=== PATIENT | female | born 1955 | race Hispanic/Latino ===

== ENCOUNTER 2024-12-01 23:33 | Emergency (ER) | payer MEDICARE, BC ==
[2024-12-01] MEDS ORDERED: Acetaminophen 500 MG TAB ONE (23:47)
[2024-12-01] MEDS ORDERED: Ondansetron PF 4 MG/2 ML Vial ONE (23:47)
[2024-12-01] MEDS ORDERED: Sodium Chloride 0.9% 1,000 ML ONE (23:47)
[2024-12-02] MEDS ORDERED: Thiamine HCl 200 MG/2 ML VIAL ONE (00:07)
[2024-12-02] MEDS ORDERED: Acetaminophen 650 MG Suppository ONE (00:07)
[2024-12-02] MEDS ORDERED: Acetaminophen 325 MG Suppository ONE (00:07)
[2024-12-02 00:12] LABS: Band 3 % (5-11); Lymphocytes 11 % (21-51); MDiff Complete? YES; Mean Corpuscular HGB CONC 33.5 g/dL (32.0-36.0); Mean Corpuscular Hemoglobin 30.9 pg (27.0-31.0); Mean Corpuscular Volume 92.5 fl (78.0-98.0); Monocytes 2 % (0-10); Neutrophil 84 % (42-75); Platelet Count 334 10x3/uL (130-400); RBC Distribution Width 11.8 % (11.5-14.5); Red Blood Cell (RBC) Count 4.21 mill/uL (4.20-5.40); White Blood Cell (WBC) Count 18.7 10x3/uL (4.8-10.8)
[2024-12-02 00:20] LABS: Acetaminophen Less than 10 mcg/mL (Less than 10); Alcohol Less than 10.0 mg/dL (Less than 10); Lipase 51 U/L (8-78); Magnesium 2.1 mg/dL (1.6-2.6); Salicylate Less than 8.0 mg/dL (Less than 8.0); Troponin I Less than 0.010 ng/mL (< 0.028)
[2024-12-02 00:21] LABS: Bilirubin Negative (Negative); Blood, Urine Negative (Negative); Clarity Clear (Clear); Glucose, Urine (Dipstick) Negative (Negative); Ketone, Urine Negative (Negative); Leukocyte Negative (Negative); Nitrite Negative (Negative); Protein, Urine (Dipstick) Negative (Neg-Trace); Specific Gravity, Urine 1.015 (1.005-1.030); Urobilinogen 0.2 mg/dL (Less than 2); pH, Urine 7.5 (5.0-9.0)
[2024-12-02 00:24] LABS: ALT (SGPT) 25 U/L (Less than 34); AST (SGOT) 31 U/L (11-34); Albumin 3.4 g/dL (3.1-4.5); Alkaline Phosphatase 66 U/L (40-110); Anion Gap 18 mmol/L (10-20); BUN (Urea Nitrogen) 20 mg/dL (9.8-20.1); Bilirubin, Total 0.5 mg/dL (0.3-1.2); Calc. Creatinine Clearance 0 mL/min (70-130); Calcium 9.9 mg/dL (7.8-10.44); Carbon Dioxide 22 mmol/L (23-31); Chloride 98 mmol/L (98-107); Estimated GFR 96; Globulin 4.6 g/dL (2.4-3.5); Glucose 96 mg/dL (80-115); Potassium 3.9 mmol/L (3.5-5.1); Sodium 134 mmol/L (136-145)
[2024-12-02 00:25] LABS: Bacteria/HPF Rare-Few HPF (None Seen); CAUTI Indications for Culture Alt mental st,lethar; RBC/HPF 0-3 HPF (0-3); Squamous Epithelial 0-3 HPF (0-3); Urine Culture Reflex No No; WBC/HPF 0-3 HPF (0-3)
[2024-12-02 00:26] LABS: Base Excess-Venous 3.2 mmol/L (-2.0 to 3.0); Bicarbonate (HCO3v) 30.5 mmol/L (22.0-28.0); CO2 Tension (PvCO2) 56.1 mmHg (42.0-51.0); Calcium, Ionized 1.17 mmol/L (1.15-1.33); Chloride 97 mmol/L (98-107); Hemoglobin - Calc 14.8 g/dL (12.0-16.0); Potassium 5.4 mmol/L (3.5-5.1); Sodium 136 mmol/L (138-145); T. Carbon Dioxide 32.2 mmol/L (22.0-28.0); vO2 Saturation-calc 97.5 % (60.0-85.0)
[2024-12-02 00:29] LABS: Amphetamine Not Detected (NotDetected); Barbiturates Screen Not Detected (NotDetected); Benzodiazepine Screen Not Detected (NotDetected); Cocaine Metabolite Screen Not Detected (NotDetected); Methadone Not Detected (NotDetected); Methamphetamine Not Detected (NotDetected); Opiate Screen Not Detected (NotDetected); Oxycodone Screen Not Detected (NotDetected); Phencyclidine (PCP) Not Detected (NotDetected); THC/Cannabinoid Screen Not Detected (NotDetected); Tricyclic Screen Not Detected (NotDetected)
== END 2024-12-02 02:51 | disposition short-term general hospital (02) ==
LOC: MADERS 23:33
DX: I67.4 Hypertensive encephalopathy (principal); R50.9 Fever, unspecified; E78.5 Hyperlipidemia, unspecified; Z79.01 Long term (current) use of anticoagulants; Z79.899 Other long term (current) drug therapy
CPT/HCPCS: 51701; 70450; 80053; 80306; 80307; 81001; 82140; 82330; 82803; 83605; 83690; 83735; 84443; 84484; 85025; 87428; 93005; 94760; 96365; 96375; J2405; J3411; J7030